=== PATIENT | male | born 1985 | race Caucasian/White ===

== ENCOUNTER → 2024-08-06 09:22 | Outpatient (REF) | payer BC, SELFPAY | LOC: RAD 09:22 | PROVIDERS: ATTENDING PHYSICIAN Radiology Diagnostic Radiology; FAMILY PHYSICIAN Family Medicine | DX: M25.551 Pain in right hip (principal) | CPT/HCPCS: 70030 ==

== ENCOUNTER → 2024-08-09 10:42 | Outpatient (REF) | payer BC, SELFPAY | LOC: PAVMRI 10:42 | PROVIDERS: ATTENDING PHYSICIAN Nurse Practitioner Family | DX: M25.551 Pain in right hip (principal) | CPT/HCPCS: 73721 ==

== ENCOUNTER → 2024-09-01 09:06 | Outpatient (REF) | payer BC, SELFPAY ==
[2024-09-01 10:22] LABS: % Basophils 0.6 % (0-2); % Eosinophils 3.4 % (0-6); % Lymphocytes 30.7 % (20.5-51.1); % Monocytes 8.8 % (1.7-9.3); % Neutrophils 56.5 % (42.2-75.2); Absolute Eosinophils 0.2 10^3/uL (0-0.7); Absolute Lymphocytes 1.5 10^3/uL (1.2-3.4); Absolute Monocytes 0.4 10^3/uL (0.1-0.6); Absolute Neutrophils 2.7 10^3/uL (1.4-6.5); Hematocrit 45.7 % (39.0-52.0); Hemoglobin 15.8 g/dL (13.0-18.0); Mean Corp Hgb Conc. 34.6 g/dL (33.0-37.0); Mean Corpuscular Hgb 31.6 pg (27.0-31.0); Mean Corpuscular Volume 91.4 fL (80.0-94.0); Mean Platelet Volume 10.2 fL (7.4-10.4); Nucleated Red Blood Cells % 0 % (-); Platelet Count 274 10^3/uL (130-400); Red Cell Dist. Width 11.8 % (11.5-14.5); White Blood Cell Count 4.8 10^3/uL (4.8-10.8)
[2024-09-01 11:00] LABS: Blood Urea Nitrogen 17 mg/dl (9-20); Carbon Dioxide 29 mmol/L (22-30); Chloride 101 mmol/L (98-107); Glucose 102 mg/dl (70-99); Potassium 5.7 mmol/L (3.5-5.1); Sodium 142 mmol/L (135-145); eGFR > 60.00
== END ==
LOC: REG 09:06
PROVIDERS: ATTENDING PHYSICIAN Orthopaedic Surgery; FAMILY PHYSICIAN Nurse Practitioner Family
DX: Z01.818 Encounter for other preprocedural examination (principal)
CPT/HCPCS: 80048; 85025; 93005

== ENCOUNTER 2024-09-21 13:07 | Outpatient (RCR) | payer BC, SELFPAY | END 2024-09-21 23:59 | disposition home or self-care (01) | LOC: RPT 13:07 | PROVIDERS: ATTENDING PHYSICIAN Physician Assistant Medical; FAMILY PHYSICIAN Nurse Practitioner Family | DX: Z47.1 Aftercare following joint replacement surgery (principal); M87.051 Idiopathic aseptic necrosis of right femur; M62.81 Muscle weakness (generalized); R26.2 Difficulty in walking, not elsewhere classified; R26.89 Other abnormalities of gait and mobility; Z96.641 Presence of right artificial hip joint | CPT/HCPCS: 97110; 97116; 97162 ==

== ENCOUNTER 2024-10-17 06:43 | Outpatient (RCR) | payer BC, SELFPAY | END 2024-10-17 23:59 | disposition home or self-care (01) | LOC: RPT 06:43 | PROVIDERS: ATTENDING PHYSICIAN Physician Assistant Medical; FAMILY PHYSICIAN Nurse Practitioner Family | DX: Z47.1 Aftercare following joint replacement surgery (principal); M87.051 Idiopathic aseptic necrosis of right femur; M62.81 Muscle weakness (generalized); R26.2 Difficulty in walking, not elsewhere classified; R26.89 Other abnormalities of gait and mobility; Z73.6 Limitation of activities due to disability; Z96.641 Presence of right artificial hip joint | CPT/HCPCS: 97110; 97112; 97116; 97140; 97530 ==

== ENCOUNTER 2024-11-07 06:43 | Outpatient (RCR) | payer BC, SELFPAY | END 2024-11-08 07:36 | disposition home or self-care (01) | LOC: RPT 06:43 | PROVIDERS: ATTENDING PHYSICIAN Physician Assistant Medical; FAMILY PHYSICIAN Nurse Practitioner Family | DX: Z47.1 Aftercare following joint replacement surgery (principal); M87.051 Idiopathic aseptic necrosis of right femur; M62.81 Muscle weakness (generalized); M87.00 Idiopathic aseptic necrosis of unspecified bone; R26.2 Difficulty in walking, not elsewhere classified; R26.89 Other abnormalities of gait and mobility; Z73.6 Limitation of activities due to disability; Z96.641 Presence of right artificial hip joint | CPT/HCPCS: 97110; 97112; 97530 ==